=== PATIENT | female | born 2000 | race Caucasian/White ===

== ENCOUNTER 2022-09-07 10:09 | Day surgery (SDC) | payer MEDICAID ==
[~2022-09-07] VITALS: Ht 160 cm; Wt 53.1 kg
[2022-09-07] MEDS ORDERED: BUPIVACAINE-MPF 0.25% 30 ML VIAL INJ ONE (11:23)
[2022-09-07] MEDS ORDERED: DESFLURANE 240 ML BTL INH ONE (11:28)
[2022-09-07] MEDS ORDERED: ceFAZolin 2,000 MG VIAL ONE (11:30)
[2022-09-07] MEDS ORDERED: fentaNYL citrate 0.05 MG/ML VIAL ONE (11:35)
[2022-09-07] MEDS ORDERED: ROCURONIUM 50 MG/5 ML VIAL IV ONE (11:37)
[2022-09-07] MEDS ORDERED: PROPOFOL 200 MG/20 ML VIAL IV ONE (11:38)
[2022-09-07] MEDS ORDERED: KETOROLAC 30 MG/ML VIAL ONE (11:38)
[2022-09-07] MEDS ORDERED: SUCCINYLCHOLINE CHLORIDE 200 MG/10 ML VIAL IVP ONE (11:38)
[2022-09-07] MEDS ORDERED: DEXAMETHASONE 4 MG/ML VIAL ONE (11:38)
[2022-09-07] MEDS ORDERED: ONDANSETRON 4 MG/2 ML VIAL ONE (11:38)
[2022-09-07] MEDS ORDERED: SUGAMMADEX SODIUM 200 MG/2 ML VIAL IV ONE (11:48)
[2022-09-07] MEDS: HYDROmorphone PFS 2 MG/ML SYR ONE ×2 (12:35→12:45)
[2022-09-07] MEDS ORDERED: ONDANSETRON 4 MG/2 ML VIAL IVP PRN (12:35)
[2022-09-07] MEDS ORDERED: HYDROmorphone PFS 2 MG/ML SYR ONE (12:39)
[2022-09-07] MEDS: HYDROmorphone 1 MG/ML AMP IVP PRN ×2 (12:55→13:05)
== END 2022-09-07 15:45 | disposition home or self-care (01) ==
LOC: MDS 10:09 → MMU 10:11 → MDS 15:45
PROVIDERS: ATTEND Obstetrics & Gynecology
DX: D27.0 Benign neoplasm of right ovary (principal)
CPT/HCPCS: 58925; 88307; J0330; J1100; J1170; J1885; J2405; J2704; J3010; J3490; J7120